=== PATIENT | female | born 1985 | race Caucasian/White ===

== ENCOUNTER 2024-09-15 16:56 | Emergency (ER) | payer SELFPAY ==
[2024-09-15 17:02] VITALS: BP 105/65; PULSE 118; RESP 16; TEMP 36.5; O2SAT 95; BMI 37.9
--- NOTE | 2024-09-15 17:21 | XRR_ITS ---
PROCEDURE INFORMATION: Exam: XR Left Foot Exam date and time: 09/15/2024 5:48 PM Age: 38 years old Clinical indication: Injury or trauma; Fall; Blunt trauma; Foot; Left TECHNIQUE: Imaging protocol: Radiologic exam of the left foot. Views: 3 or more views. COMPARISON: No relevant prior studies available. FINDINGS: Bones/joints: Transverse fracture through the base of the 4th metatarsal. Soft tissues: Normal. XR/XR foot LT min 3V* [id number] IMPRESSION: Transverse fracture through the base of the 4th metatarsal.
--- NOTE | 2024-09-15 17:21 | XRR_ITS ---
PROCEDURE INFORMATION: Exam: XR Right Ankle Exam date and time: 09/15/2024 5:46 PM Age: 38 years old Clinical indication: Injury or trauma; Fall; Blunt trauma; Ankle; Right TECHNIQUE: Imaging protocol: Radiologic exam of the right ankle. Views: 3 or more views. COMPARISON: No relevant prior studies available. FINDINGS: Bones/joints: No acute fracture. Soft tissues: Soft tissue swelling along the lateral aspect of the ankle. XR/XR ankle RT min 3V* [id number] IMPRESSION: 1. Soft tissue swelling along the lateral aspect of the ankle. 2. No acute fracture.
[2024-09-15 17:57] VITALS: BP 123/80; PULSE 102; O2SAT 97
--- NOTE | 2024-09-15 18:47 | ED_ITS ---
Documented by User: Autumn Sotomayor NP 09/17/24 23:38 HPI - Extremity Problem General: Chief complaint: Extremity Injury, Lower Stated complaint: left ankle pain Time Seen by Provider: 09/15/24 17:14 History of Present Illness: Patient presents to the emergency department with right ankle pain and left foot pain patient states that she tripped and a hole in the ground. Patient states the pain is progressively worsened and she has left foot swelling. Patient denies any other trauma or injury Related Data Previous Rx's ?Medication ?Instructions ?Recorded hydrocodone 5 mg-acetaminophen 325 1 tab PO Q6H #20 ta bs 09/15/24 mg tablet Allergies Allergy/AdvReac Type Severity Reaction Status Date / Time No Known Allergies Allergy Verified 09/15/24 17:05 Review of Systems General: Reports: 10 or more systems reviewed and unremarkable except in HPI and below PFSH ED Female Reproductive History: Date of last menstrual period: 09/11/24 Physical Exam Const: COMMON NORMALS: no acute distress, patient oriented x3, healthy appearing and well nourished Neck/C-Spine: COMMON NORMALS: full ROM, no lymphadenopathy, supple and no JVD CERVICAL SPINE: Yes cervical ROM normal Chest: COMMONS NORMALS: normal inspection of the chest and normal palpation of entire chest wall Resp: COMMON NORMALS: normal respiratory effort, No retractions, No use of accessory muscles and clear to auscultation bilaterally EFFORT & INSPECTION: Yes able to speak in complete sentences and Yes symmetric chest movement AUSCULTATION: clear to auscultation bilaterally Cardio: COMMON NORMALS: no JVD, regular rate and regular rhythm RATE: regular rate RHYTHM: regular rhythm Back/Pelvis: COMMON NORMALS: thoracic and lumbar spine normal to inspection, no thoracic nor lumbar tenderness and thoraco-lumbar ROM normal THORACIC SPINE/UPPER BACK: Yes normal to inspection LUMBAR SPINE/LOWER BACK: Yes normal to inspection Extremity: COMMON NORMALS: capillary refill normal GENERAL: Yes normal exam except as noted Neuro: COMMON NORMALS: patient oriented x3, CN's II-XII intact bilaterally and moves all extremities Psych: COMMON NORMALS: mental status grossly normal, Normal thought process present, cooperative, normal affect, speech normal, activity/motor behavior normal, denies hallucinations, denies homicidal ideation and denies suicidal ideation APPEARANCE: Yes grossly normal ATTITUDE: Yes calm ACTIVITY/MOTOR BEHAVIOR: Yes appropriate eye contact SPEECH: Yes normal speech THOUGHT PROCESS: Normal thought process present THOUGHT CONTENT: Yes Normal thought content present ATTENTION/CONCENTRATION: Yes attention grossly intact MEMORY/COGNITION: Yes memory grossly intact INSIGHT: Good insight present (Psych) JUDGEMENT: Good judgement present (Psych) Skin: COMMON NORMALS: no rashes or lesions noted, no wounds, turgor normal, no jaundice, no petechiae and no mottling GENERAL SKIN EXAM: no rashes or lesions noted and turgor normal Course Vital Signs: Vital signs: Vital Signs Temperature 97.7 F 09/15/24 17:02 Pulse Rate 102 H 09/15/24 17:57 Respiratory Rate 16 09/15/24 17:02 Blood Pressure 123/80 09/15/24 17:57 Pulse Oximetry 97 09/15/24 17:57 Oxygen Delivery Me thod Room Air 09/15/24 17:57 MDM - Extremity (Nontraumatic) Medical Decision Making Patient is well-appearing nontoxic in no acute distress. Patient presents to the emergency department with right ankle pain and left foot pain patient states that she tripped and a hole in the ground. Patient states the pain is progressively worsened and she has left foot swelling. Patient denies any other trauma or injury patient has tenderness to the lateral aspect of the right ankle x-ray is negative for any acute findings. Patient has tenderness to the lateral aspect of the left foot. X-ray reveals a fourth metatarsal fracture patient was placed in an OCL splint and given crutches. Will send home patient with a prescription for [place] for pain. Patient is neurovascularly intact distal pre and post splint application. Patient is to follow-up with Ortho. Return precautions advised home care instructions reviewed I do not feel patient needs any additional emergent testing at this time. Patient is medically cleared and appropriate for discharge Lab Data Radiology Impressions Ankle X-Ray 09/15/24 17:21 IMPRESSION: 1. Soft tissue swelling along the lateral aspect of the ankle. 2. No acute fracture. Foot X-Ray 09/15/24 17:21 IMPRESSION: Transverse fracture through the base of the 4th metatarsal. XR interpretation done by ED provider, pending radiology final review Discharge Plan Discharge Patient Disposition: Home Clinical Impression: Fracture of foot Qualifiers: Encounter type: initial encounter Fracture type: closed Laterality: left Qualified Code(s): S92.902A - Unspecified fracture of left foot, initial encounter for closed fracture Condition: Stable Prescriptions: New hydrocodone-acetaminophen 5-325 mg tablet 1 tab PO Q6H Qty: 20 0RF Discharge Orders: Discharge ED (Routine); Ordered 09/15/24 Ordered By: Autumn Sotomayor Discharge Activity: Limit activity as instructed and Use walker/crutches as instructed Patient Instructions: Opioid Safety, Pain Management, Patient Portal & Dg Instructions Activity Restrictions/Additional Instructions: PLease keep splint in place and use crutches until seen and advised by Ortho Return to ER with any worsening of pain or symptoms Take meds as directed Please do not drive or operate heavy machinery while taking [place] Stand Alone Forms: Work/School Release Print Language: Zimbabwean Coding Level of Care Code ED Field Court Researcher for Chg Fwd Documented by User: Harry Lucero DO 09/18/24 07:33 HPI - Extremity Problem General: Chief complaint: Extremity Injury, Lower Stated complaint: left ankle pain Time Seen by Provider: 09/15/24 17:14 Related Data Previous Rx's ?Medication ?Instructions ?Recorded hydrocodone 5 mg-acetaminophen 325 1 tab PO Q6H #20 ta bs 09/15/24 mg tablet Allergies Allergy/AdvReac Type Severity Reaction Status Date / Time No Known Allergies Allergy Verified 09/15/24 17:05 Course Vital Signs: Vital signs: Vital Signs Temperature 97.7 F 09/15/24 17:02 Pulse Rate 102 H 09/15/24 17:57 Respiratory Rate 16 09/15/24 17:02 Blood Pressure 123/80 09/15/24 17:57 Pulse Oximetry 97 09/15/24 17:57 Oxygen Delivery Me thod Room Air 09/15/24 17:57 MDM - Extremity (Nontraumatic) Medical Decision Making Patient is well-appearing nontoxic in no acute distress. Patient presents to the emergency department with right ankle pain and left foot pain patient states that she tripped and a hole in the ground. Patient states the pain is progressively worsened and she has left foot swelling. Patient denies any other trauma or injury patient has tenderness to the lateral aspect of the right ankle x-ray is negative for any acute findings. Patient has tenderness to the lateral aspect of the left foot. X-ray reveals a fourth metatarsal fracture patient was placed in an OCL splint and given crutches. Will send home patient with a prescription for [place] for pain. Patient is neurovascularly intact distal pre and post splint application. Patient is to follow-up with Ortho. Return precautions advised home care instructions reviewed I do not feel patient needs any additional emergent testing at this time. Patient is medically cleared and appropriate for discharge Chart reviewed and patient discussed with midlevel. Agree with assessment and plan. Lab Data Radiology Impressions Ankle X-Ray 09/15/24 17:21 IMPRESSION: 1. Soft tissue swelling along the lateral aspect of the ankle. 2. No acute fracture. Foot X-Ray 09/15/24 17:21 IMPRESSION: Transverse fracture through the base of the 4th metatarsal. Discharge Plan Discharge Patient Disposition: Home Clinical Impression: Fracture of foot Qualifiers: Encounter type: initial encounter Fracture type: closed Laterality: left Qualified Code(s): S92.902A - Unspecified fracture of left foot, initial encounter for closed fracture Condition: Stable Prescriptions: New hydrocodone-acetaminophen 5-325 mg tablet 1 tab PO Q6H Qty: 20 0RF Discharge Orders: Discharge ED (Routine); Ordered 09/15/24 Ordered By: Autumn Sotomayor Discharge Activity: Limit activity as instructed and Use walker/crutches as instructed Patient Instructions: Opioid Safety, Pain Management, Patient Portal & Dg Instructions Activity Restrictions/Additional Instructions: PLease keep splint in place and use crutches until seen and advised by Ortho Return to ER with any worsening of pain or symptoms Take meds as directed Please do not drive or operate heavy machinery while taking [place] Stand Alone Forms: Work/School Release Print Language: [place]an Coding Level of Care Code ED Field Court Researcher for Eleanor Caceres
[2024-09-15] MEDS: HYDROcodone-acetaminophen 5-325 mg Tablet 1 TAB PO (19:33)
--- NOTE | 2024-09-16 08:37 | DCPLANNER ---
messaged for er f/u
== END 2024-09-15 19:35 | disposition home or self-care (01) ==
PROVIDERS: Emergency Provider Registered Nurse
DX: S92.342A Displaced fracture of fourth metatarsal bone, left foot, initial encounter for closed fracture (principal); W01.0XXA Fall on same level from slipping, tripping and stumbling without subsequent striking against object, initial encounter
CPT/HCPCS: 29515; 73610; 73630; 99283; E0114; J9999

== ENCOUNTER 2024-09-28 08:35 | Outpatient (CLI) | payer MEDICAID, SELFPAY ==
--- NOTE | 2024-09-28 08:30 | CTR_ITS ---
PROCEDURE INFORMATION: Exam: CT Left Lower Extremity Without Contrast, Foot Exam date and time: 09/28/2024 8:49 AM Age: 38 years old Clinical indication: Pain; Left foot fracture, rolled ankle and foot in hole on September 15. TECHNIQUE: Imaging protocol: CT of the left lower extremity without contrast was performed. Exam focused on the foot. Radiation optimization: All CT scans at this facility use at least one of these dose optimization techniques: automated exposure control; mA and/or kV adjustment per patient size (includes targeted exams where dose is matched to clinical indication); or iterative reconstruction. COMPARISON: CR (LOW EXM, ) 09/15/2024 5:48 PM RADIATION DOSE METRICS: Total DLP (mGy-cm): 158.2 FINDINGS: Bones/joints: Nondisplaced, mildly comminuted fracture involving the proximal 4th metatarsal, extending to the articular margin. Nondisplaced, mildly comminuted fracture involving the proximal 3rd metatarsal, with an intra-articular component. Oblique, intra-articular fracture involving the plantar base of the proximal 2nd metatarsal. Nondisplaced irregular fracture involving the plantar aspect of the distal medial cuneiform, extending to the articular surface with the 1st and 2nd metatarsals. 2 mm nondisplaced avulsion fracture of the dorsal base of the 1st metatarsal. Soft tissues: Mild deep and subcutaneous edema and swelling surrounds the midfoot and forefoot. A 1.5 cm well-defined soft tissue density structure lies in the plantar subcutaneous fat underlying the 5th metatars[address] head. CT/CT foot LT wo con* [id number] IMPRESSION: 1. Nondisplaced intra-articular fractures of the medial cuneiform, proximal 2nd metatarsal, proximal 3rd metatarsal and proximal 4th metatarsal. Tiny avulsion fracture of the dorsum of the base of the 1st metatarsal. Fractures involve the Lisfranc articulations, although there is no displacement or diastasis of the 1st and 2nd metatarsals. Orthopedic consultation is recommended. 2. Subcutaneous soft tissue mass underlying the 5th metatarsal head, possibly representing a complex cyst or hematoma. The findings should be assessed clinically.
== END 2024-09-28 08:36 | disposition home or self-care (01) ==
LOC: RAD 08:37
PROVIDERS: PCP Nurse Practitioner; Visit Provider Podiatrist Foot & Ankle Surgery
DX: S93.326A Dislocation of tarsometatarsal joint of unspecified foot, initial encounter (principal); S92.325A Nondisplaced fracture of second metatarsal bone, left foot, initial encounter for closed fracture; S92.335A Nondisplaced fracture of third metatarsal bone, left foot, initial encounter for closed fracture; S92.345A Nondisplaced fracture of fourth metatarsal bone, left foot, initial encounter for closed fracture; W17.2XXA Fall into hole, initial encounter; M79.89 Other specified soft tissue disorders
CPT/HCPCS: 73700

== ENCOUNTER 2024-10-03 08:03 | Day surgery (SDC) | payer MEDICAID, SELFPAY ==
[2024-10-03] VITALS (12 sets, daily range): BP systolic 112–130; BP diastolic 74–92; PULSE 71–91; RESP 12–20; TEMP 36.1–36.4; O2SAT 92–100; BMI 37.9
--- NOTE | 2024-10-03 | XR_ITS ---
WS: [id number] Left foot, C-arm fluoroscopy views, 10/03/2024 Clinical Data: LIEN PICS Comparison: Left foot, 09/15/2024 Findings: Dr. Groves inserted an orthopedic staple into the dorsum of the left foot at the level of the metatarsal cuneiform junctions. XR/XR foot LT min 3V* [id number] Impression: Insertion of orthopedic staple into left foot.
[2024-10-03 08:19] LABS: OR HCG Qualitative Urine Negative (Negative)
--- NOTE | 2024-10-03 08:56 | PC.NURSE ---
Dr Hale injected Ropivacaine 30mls and Decadron 4mg into the Popiteal and Abductor space. Pt tolerated well
--- NOTE | 2024-10-03 08:59 | ANES.PREANE2 ---
Pre-Anesthetic Assessment Height/Weight: Height 1.75 m Weight 116.573 kg Temp Pulse Resp BP Pulse Ox O2 Del Method 97.5 F L 91 16 128/74 97 Room Air 10/03/24 08:20 10/03/24 08:20 10/03/24 08:20 10/03/24 08:20 10/03/24 08:20 10/03/24 08:20 Preop Diagnosis: Left foot Lisfranc fracture Operation Date: 10/03/24 09:55 Proposed Procedures p Arthrodesis Foot Tarsometatarsal Joint Arthrodesis(Left) - Koby Groves DPM Familial anesthetic complications: None Was Beta Chana taken within 24 hours: N/A Was Clonidine taken within 24 hours: N/A Last intake: Intake Last Liquid Date 10/02/24 Last Liquid Time 21:30 Last Solid Date 10/02/24 Last Solid Time 21:30 Social No alcohol and No tobacco Exam alert, oriented x 3, clear to auscultation bilaterally and regular rate & rhythm Airway Mallampati: Class I Dentition: full Anesthetic Plan ASA status: 2 Anesthesia: General and Regional (specify below) Risk of > 500 ml blood loss (7ml/kg in children): No Medications/Allergies Home Medications ?Medication ?Instructions ?Recorded ?Confirmed ?Last Taken ?Type hydrocodone 5 mg-acetaminophen 325 1 tab PO Q6H #20 tabs 09/15/24 09/29/24 10/02/24 18:00 Rx mg tablet ibuprofen 200 mg capsule 200 mg PO Q6H PRN Pain 09/22/24 09/29/24 10/02/24 18:00 History Allergies Allergy/AdvReac Type Severity Reaction Status Date / Time No Known Allergies Allergy Verified 10/03/24 08:17 Current Medications Generic Name Dose Route Start Last Admin Trade Name Freq PRN Reason Stop Dose Admin Sodium Chloride 1,000 mls @ 30 mls/hr 10/03/24 08:15 10/03/24 08:32 Sodium Chloride 0.9% IV 10/04/24 08:14 30 mls/hr .Q24H VILMA Administration PFSH Anesthesia Social History Smoking and tobacco/nicotine status: current every day tobacco/nicotine user Female Reproductive History Date of last menstrual period: 06/29/25 Anesthesia Procedures Nerve Block Nerve Block 1: Main Anesthesia: general anesthesia Time Out Performed: Yes Consent: requested by attending/covering physician, from patient, from other, risks and benefits reviewed and patient agrees to proceed Nerve block location: adductor canal (L) Intraoral Nerve Block: supraperiosteal Anesthesia monitors applied: pulse oximetry, EKG, BP cuff and oxygen Nerve block position: supine Anesthetic Used: ropivicaine 0.5% (20 ml) and with decadron (4 mg) Ultrasound used to: recognize landmarks Nerve Stimulator Used?: No Interscalene/Femoral BLK: 4 stimuplex 21 g needle used for position and inplane approach, visualize local anesthetic spread and no vascular puncture identified Injection: neg aspiration of heme Patient Tolerated Procedure: well Complications: none Nerve Block 2: Main Anesthesia: general anesthesia Time Out Performed: Yes Consent: requested by attending/covering physician, from patient, from other, risks and benefits reviewed and patient agrees to proceed Nerve block location: popliteal (L) Anesthesia monitors applied: pulse oximetry, EKG, BP cuff and oxygen Nerve block position: supine Anesthetic Used: ropivicaine 0.5% (10 ml) and with decadron (4 mg) Ultrasound used to: visualize and ID femerol nerve Nerve Stimulator Used?: No Interscalene/Femoral BLK: 4 stimuplex 21 g needle used for position and inplane approach, visualize local anesthetic spread and no vascular puncture identified Injection: neg aspiration of heme Patient Tolerated Procedure: well Complications: none
--- NOTE | 2024-10-03 09:11 | P.HPUD_ITS ---
Surgery/Procedure H&P Update DATE OF PROCEDURE: October 03, 2024 DATE H&P PERFORMED: 09/29/24 H&P UPDATE INFORMATION: I have reviewed H&P completed within last 30 days, I have examined patient prior to procedure, No changes to prior documentation, H&P is in [facility] EMR on date indicated and Risks and benefits of the procedure reviewed PREOP DIAGNOSIS: Left foot Lisfranc fracture PLANNED PROCEDURE: Operation Date: 10/03/24 09:55 Proposed Procedures p Arthrodesis Foot Tarsometatarsal Joint Arthrodesis(Left) - Koby Groves DPM
[2024-10-03] MEDS: ceFAZolin 2,000 mg SDV 2000 MG IVP (09:33)
--- NOTE | 2024-10-03 11:12 | PM.OP ---
Operative Report Date of procedure: October 03, 2024 Surgeon: Koby Groves DPM Procedure: Date of procedure: 10/03/2024 Pre-op diagnosis: Left foot Lisfranc Post-op diagnosis: Same Post-op findings: Unstable 1st through 3rd tarsometatarsal joint left foot Procedure done: Arthrodesis 1st through 3rd tarsometatarsal joint left foot CPT 32753 Implants: Nitinol staple x 3 [employer], 1 cc DBX Specimens removed: None Surgeon: Dr. Koby Groves DPM Certified Orthotic Fitter: Bonifacio Najera Estimated blood loss: 5 cc Tourniquet time: 70 minutes Complications: None Patient is a 38-year-old female that has a history of left foot Lisfranc fracture. The extent of the injury warrants surgical intervention. A lengthy discussion regarding the procedure, including risks and complications has been had with the patient and is noted in the recent clinic note. Written and verbal consent have been obtained. All patient questions have been answered to the patient?s satisfaction. No written or verbal guarantees have been given or implied. The patient has been NPO since midnight. The history has been reviewed and the history and physical is current. The signed consent was confirmed and placed in the patient chart. Patient imaging has been reviewed and is consistent with the diagnosis. Under mild sedation, the patient was brought into the operating room and placed on the table in the supine position. IV antibiotics were given by the anesthesia team as preoperative surgical prophylaxis. General sedation was then performed by the anesthesiateam. A popliteal block was performed by the anesthesia department. A pneumatic tourniquet was then placed about the right thigh. The operative extremity was then prepped and draped in the usual fashion. The extremity was then elevated and exsanguinated before the tourniquet was inflated to 325 mmHg. After inflation, the following procedure was then performed. Attention was directed to the left foot where a 6 cm incision was made overlying the first tarsometatarsal joint. This was done using a #15 blade. Dissection was carried down through subcutaneous the superficial fascia to the level of the first tarsometatarsal joint which was exposed. Sagittal bone saw was then used to resect the articular cartilage from the medial cuneiform and base of first metatarsal. Joint resurfacing tool was then used to remove any remaining articular cartilage. Site was irrigated before the joint was fenestrated. Nitinol staple was then placed over the first tarsometatarsal joint to provide compression and allow for arthrodesis. Good positioning of the staple was noted and good compression across the joint was noted. Attention was directed to the dorsal aspect of the left foot where a 7 cm incision was made using a #15 blade. Dissection was carried down to subcutaneous the superficial fascia to the level of the 2nd and 3rd tarsometatarsal joint articulations. These were exposed before sagittal bone saw was used to remove the articular cartilage from these joints. Joint resurfacing tool was then used to remove any remaining articular cartilage. The articular surfaces were then fenestrated. The third tarsometatarsal joint was backfilled using 1 cc of DBX bone putty. Next, nitinol staple was placed over the 2nd and 3rd tarsometatarsal joint to provide compression for arthrodesis. Good positioning was noted. All incisions were then irrigated with copious amounts of sterile saline before attention was directed to closure. Deep tissue was closed with 3-0 Vicryl followed by subcuticular closure with 4-0 Vicryl and skin closure with 4-0 nylon in running interlocking fashion. The patient tolerated the procedure and anesthesia well and without complication. The patient was transported from the operating room to the recovery room with vital signs stable and vascular status intact to all digits of the left foot. The patient was given both written and verbal instructions to remain nonweightbearing to the operative extremity, to keep dressings/splint clean, dry and intact and to take pain medication as directed. The patient will follow-up in the outpatient setting at their scheduled appointment. The patient was discharged with my personal number and was instructed to call if any questions or issues should arise. They were discharged home once anesthesia criteria was met.
[2024-10-03] MEDS: fentaNYL 50 mcg/mL INJ 2mL IVP (11:40)
--- NOTE | 2024-10-03 12:30 | ANE.PACU2 ---
Inpatient post-anesthesia follow up: Airway intact: Yes Vital signs: Temperature 97.0 F Pulse Rate 71 Respiratory Rate 17 Blood Pressure 120/92 Pulse Oximetry 100 Oxygen Delivery Me thod Room Air Oxygen Flow Rate Fraction of Inspir ed Oxygen Hydration adequate: Yes Nausea and vomiting: No Pain level: 1 Mental status: Baseline
== END 2024-10-03 12:32 | disposition home or self-care (01) ==
PROVIDERS: Anesthesiology; PCP Nurse Practitioner; Visit Provider Podiatrist Foot & Ankle Surgery
PROC: (CPT 28740; principal; 2024-10-03 09:45)
DX: S93.325A Dislocation of tarsometatarsal joint of left foot, initial encounter (principal); W01.0XXA Fall on same level from slipping, tripping and stumbling without subsequent striking against object, initial encounter; F17.200 Nicotine dependence, unspecified, uncomplicated
CPT/HCPCS: 28730; 73630; 76000; 81025; C1713; J0690; J1100; J2405; J2704; J2795; J3010; J7030; J9999

== ENCOUNTER → 2024-10-17 16:08 | Outpatient (BNVA) | payer MEDICAID, SELFPAY | PROVIDERS: PCP Nurse Practitioner; Visit Provider Podiatrist Foot & Ankle Surgery | DX: S93.322A Subluxation of tarsometatarsal joint of left foot, initial encounter (principal); S92.902A Unspecified fracture of left foot, initial encounter for closed fracture; X58.XXXA Exposure to other specified factors, initial encounter | CPT/HCPCS: 73630 ==

== ENCOUNTER → 2024-11-09 09:55 | Outpatient (BNVA) | payer MEDICAID, SELFPAY | PROVIDERS: PCP Nurse Practitioner; Visit Provider Podiatrist Foot & Ankle Surgery | DX: Z98.890 Other specified postprocedural states (principal); M79.672 Pain in left foot; S93.322A Subluxation of tarsometatarsal joint of left foot, initial encounter; S92.902A Unspecified fracture of left foot, initial encounter for closed fracture; X58.XXXA Exposure to other specified factors, initial encounter | CPT/HCPCS: 73630 ==

== ENCOUNTER → 2024-11-23 09:40 | Outpatient (BNVA) | payer MEDICAID, SELFPAY | PROVIDERS: PCP Nurse Practitioner; Visit Provider Podiatrist Foot & Ankle Surgery | DX: S92.902A Unspecified fracture of left foot, initial encounter for closed fracture (principal); S93.322A Subluxation of tarsometatarsal joint of left foot, initial encounter; X58.XXXA Exposure to other specified factors, initial encounter | CPT/HCPCS: 73630 ==